=== PATIENT | female | born 1985 | race American Indian/Alaskan Native ===

== ENCOUNTER 2017-01-04 18:03 | Inpatient (IN) | payer OTHER ==
[2017-01-04 18:28] LABS: Basophils % (Auto) 0.2 % (0.0-1.8); Eosinophils % (Auto) 2.3 % (0.0-4.3); Hematocrit 33.5 % (30.3-42.9); Hemoglobin 10.5 gm/dl (10.1-14.3); Mean Corpuscular HGB Conc 31 % (30-34); Mean Corpuscular Volume 70 fl (79-97); Platelet Count 243 K/mm3 (140-440); Red Blood Count 4.76 M/mm3 (3.65-5.03); Red Cell Distribution Width 15.8 % (13.2-15.2); White Blood Count 10.4 K/mm3 (4.5-11.0)
[2017-01-04 18:39] LABS: Mean Corpuscular Hemoglobin 22 pg (28-32)
[2017-01-04 18:46] LABS: Bacteria,Urine 1+ /HPF (Negative); Bilirubin,Urine NEG (Negative); Blood,Urine SM (Negative); Ketones,Urine NEG (Negative); Leukocyte Esterase,Urine SM (Negative); Nitrite,Urine NEG (Negative); Protein,Urine <15 mg/dL mg/dL (Negative); Urobilinogen,Urine < 2.0 mg/dL (<2.0)
[2017-01-04 18:47] LABS: Alanine Aminotransferase 21 units/L (7-56); Albumin 3.6 g/dL (3.9-5); Alkaline Phosphatase 89 units/L (35-129); Anion Gap 18 mmol/L; BUN/Creatinine Ratio 8.75; Blood Urea Nitrogen 7 mg/dL (7-17); Calcium 8.5 mg/dL (8.4-10.2); Carbon Dioxide 21 mmol/L (22-30); Chloride 101.3 mmol/L (98-107); Glucose 91 mg/dL (65-100); Lipase 22 units/L (13-60); Potassium 3.6 mmol/L (3.6-5.0); Sodium 137 mmol/L (137-145); Total Protein 7.1 g/dL (6.3-8.2)
[2017-01-04] MEDS ORDERED: DUONEB 0.5 MG-3 MG/3 ML SOLN IH ONE (19:26)
[2017-01-04] MEDS ORDERED: DILAUDID IV ONE ×2 (19:26→21:22)
[2017-01-04] MEDS ORDERED: ZOFRAN IV ONE (19:26)
[2017-01-04] MEDS ORDERED: TORADOL IV ONE (19:26)
[2017-01-04] MEDS ORDERED: NACL 0.9% 1000 ML 1,000 ML IV ONE (19:30)
[2017-01-04] MEDS ORDERED: ROCEPHIN/NS 1 GM/50 ML 1 GM/50 ML BAG IV ONE (20:17)
--- NOTE | 2017-01-04 20:29 | Cat Scan Report ---
FINAL REPORT EXAM: CT ABDOMEN PELVIS WO CON HISTORY: left flank pain COMPARISON: None available. TECHNIQUE: Contiguous axial images were obtained. Additional sagittal and coronal reformatted images were obtained. FINDINGS: Mild linear atelectasis or scarring at the lung bases. No calcified gallstones. Liver, spleen, pancreas and adrenal glands are grossly unremarkable. No nephrolithiasis or hydronephrosis. Mild left-sided perinephric fat stranding. Aorta and IVC are normal in caliber. No distal ureteral or urinary bladder calculi. Uterus and ovaries are grossly unremarkable. Trace fluid in the pelvis within physiologic limits. There is several borderline and mildly enlarged lymph nodes in the pelvic cavity and inguinal regions. For example there is a left external iliac chain lymph node measuring 1.91.3 centimeters (series 3, image 139). Prior appendectomy. Large and small bowel loops are normal in caliber. Bony pelvis and lumbar spine are grossly intact mild to moderate focal degenerative changes at the L5-S1 level. IMPRESSION: Mild left-sided perinephric fat stranding. No obstructive uropathy. No calculus identified along the course of left ureter or urinary bladder. Findings are most concerning for infection. Recently passed stone could have a similar appearance. Correlation with urinalysis suggested. Trace free fluid in the pelvis within physiologic limits. Borderline and mildly enlarged pelvic and inguinal lymph nodes. These may be reactive given the patient's age. Followup exam within the next 3-6 months may be of benefit to ensure stability.
--- NOTE | 2017-01-04 20:39 | Emergency Department Report ---
ED Abdominal Pain HPI - General Chief Complaint: Abdominal Pain Stated Complaint: LT SIDE PAIN Time Seen by Provider: 01/04/17 19:15 Source: patient Mode of arrival: Ambulatory Limitations: No Limitations - History of Present Illness Initial Comments: 31-year-old female with a past medical history of asthma, lupus, previous PE and previous abdominal surgery including appendectomy, fallopian tube removal, C -section, and endometrial ablation presents to the hospital complaining of left flank pain 5 days. Pain extends across the lower left anterior ribs and posteriorly to the left posterior flank and lower back. Pain is constant, 10/ 10 in intensity, worse with movement, palpation, and deep inspiration. Patient complains of chronic nausea that is unchanged and no episodes of vomiting. She denies fever, dysuria, hematuria, or shortness of breath. Patient's history and PE in the past but was taken off Lovenox 1 year ago and states the symptoms feel different. 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 Patient also complains of intermittent swelling to her hands Severity scale (0 -10): 10 - Related Data Home Medications Medication Instructions Recorded Confirmed Last Taken Albuterol Sulfate [Albuterol 0.63% 0.63 mg IH TID PRN 06/11/15 01/04/17 Unknown NEBS] Previous Rx's Medication Instructions Recorded Last Taken Type ALBUTEROL Inhaler [ProAir HFA 2 puff IH QID PRN #1 inhalation 06/11/15 Unknown Rx Inhaler] Allergies Allergy/AdvReac Type Severity Reaction Status Date / Time shellfish derived AdvReac Shortness Verified 06/11/15 15:38 of Breath ED Review of Systems ROS: Stated complaint: LT SIDE PAIN Other details as noted in HPI Comment: All other systems reviewed and negative Other: Constitutional: No fevers chills Eyes: No eye pain visual changes ENT: No ear pain or throat pain Neck: Denies pain Respiratory: Denies cough wheezing shortness of breath Cardiovascular: Denies palpitations, syncope GI: As per HPI : Denies dysuria Musculoskeletal: As per HPI Skin: Denies rash, lesions, erythema Neurologic: Denies headache, numbness, weakness Psychiatric: Denies suicidal ideation, hallucinations hy ED Past Medical Hx - Past Medical History Previous Medical History?: Yes Hx Pulmonary Embolism: Yes Hx Asthma: Yes Additional medical history: Lupus - Surgical History Past Surgical History?: Yes Hx Appendectomy: Yes Additional Surgical History: Fallopian tubal removal, endometrial ablation. c- section - Social History Smoking Status: Former Smoker Substance Use Type: Alcohol, Prescribed - Medications Home Medications: Home Medications Medication Instructions Recorded Confirmed Last Taken Type ALBUTEROL Inhaler [ProAir HFA 2 puff IH QID PRN #1 inhalation 06/11/15 01/04/17 Unknown Rx Inhaler] Albuterol Sulfate [Albuterol 0.63% 0.63 mg IH TID PRN 06/11/15 01/04/17 Unknown History NEBS] ED Physical Exam - General Limitations: No Limitations - Other Other exam information: General: Positive distress secondary to pain, patient is alert in no acute distress Head exam: Atraumatic, normocephalic Eyes exam: Normal appearance, pupils equal reactive to light, extraocular movements intact ENT: Moist mucous membrane, normal oropharynx Neck exam: Normal inspection, full range of motion, no meningismus nontender Respiratory exam: Mild expiratory wheezing, no tachypnea or accessory muscle use Left lower rib tenderness Cardiovascular: Normal rate and rhythm, normal heart sounds Abdomen: Soft, nondistended, left lower quadrant tenderness, with normal bowel sounds, no rebound, or guarding Extremity: Full range of motion, mild swelling to wrist/hand area bilateral Back: Normal Inspection, full range of motion, left flank in the paraspinal muscle tenderness Neurologic: Alert, oriented x3, cranial nerves intact, no motor or sensory deficit Psychiatric: normal affect, normal mood Skin: Warm, dry, intact ED Course Vital Signs 01/04/17 01/04/17 01/04/17 18:08 19:00 19:10 Temperature 98.6 F Pulse Rate 92 H Pulse Rate [ Anterior Bilateral Throughout] Pulse Rate [ Radial] Respiratory 18 Rate Respiratory Rate [Anterior Bilateral Throughout] Blood Pressure 105/68 113/62 Blood Pressure [Left Radial Artery] O2 Sat by Pulse 100 100 100 Oximetry 01/04/17 01/04/17 01/04/17 19:20 19:55 19:57 Temperature Pulse Rate Pulse Rate [ Anterior Bilateral Throughout] Pulse Rate [ Radial] Respiratory 18 Rate Respiratory Rate [Anterior Bilateral Throughout] Blood Pressure 113/62 113/62 Blood Pressure [Left Radial Artery] O2 Sat by Pulse 99 97 Oximetry 01/04/17 01/04/17 01/04/17 20:00 20:28 20:30 Temperature Pulse Rate Pulse Rate [ Anterior Bilateral Throughout] Pulse Rate [ Radial] Respiratory Rate Respiratory Rate [Anterior Bilateral Throughout] Blood Pressure 111/75 111/75 111/75 Blood Pressure [Left Radial Artery] O2 Sat by Pulse 99 99 99 Oximetry 01/04/17 01/04/17 01/04/17 20:34 20:40 20:44 Temperature Pulse Rate Pulse Rate [ 76 78 Anterior Bilateral Throughout] Pulse Rate [ Radial] Respiratory Rate Respiratory 18 18 Rate [Anterior Bilateral Throughout] Blood Pressure 111/75 Blood Pressure [Left Radial Artery] O2 Sat by Pulse 99 Oximetry 01/04/17 01/04/17 01/04/17 20:50 21:00 21:10 Temperature Pulse Rate Pulse Rate [ Anterior Bilateral Throughout] Pulse Rate [ Radial] Respiratory Rate Respiratory Rate [Anterior Bilateral Throughout] Blood Pressure 113/62 111/75 111/75 Blood Pressure [Left Radial Artery] O2 Sat by Pulse 97 97 94 Oximetry 01/04/17 01/04/17 01/04/17 21:20 21:30 21:40 Temperature Pulse Rate Pulse Rate [ Anterior Bilateral Throughout] Pulse Rate [ Radial] Respiratory Rate Respiratory Rate [Anterior Bilateral Throughout] Blood Pressure 111/75 111/75 111/75 Blood Pressure [Left Radial Artery] O2 Sat by Pulse 99 99 99 Oximetry 01/04/17 01/04/17 01/04/17 21:50 22:00 22:14 Temperature Pulse Rate Pulse Rate [ Anterior Bilateral Throughout] Pulse Rate [ Radial] Respiratory Rate Respiratory Rate [Anterior Bilateral Throughout] Blood Pressure 111/75 127/72 127/72 Blood Pressure [Left Radial Artery] O2 Sat by Pulse 98 97 98 Oximetry 01/04/17 01/04/17 01/04/17 22:20 22:30 22:40 Temperature Pulse Rate Pulse Rate [ Anterior Bilateral Throughout] Pulse Rate [ Radial] Respiratory Rate Respiratory Rate [Anterior Bilateral Throughout] Blood Pressure 127/72 127/72 127/72 Blood Pressure [Left Radial Artery] O2 Sat by Pulse 98 100 99 Oximetry 01/04/17 23:39 Temperature 98.3 F Pulse Rate Pulse Rate [ Anterior Bilateral Throughout] Pulse Rate [ 63 Radial] Respiratory 16 Rate Respiratory Rate [Anterior Bilateral Throughout] Blood Pressure Blood Pressure 115/57 [Left Radial Artery] O2 Sat by Pulse 99 Oximetry - Reevaluation(s) Reevaluation #1: 01/04/17 21:23 Patient received 1 L normal saline, Dilaudid, Zofran, Toradol continues to have significant pain. Rocephin being given at this time. Patient has intractable pain unmanageable with ED IV narcotics and will be admitted - EJ/Peripheral Line Neck R Time Out Performed: Yes Indications: nurses unable to establis Skin Cleansed in Sterile Fashion: Yes Size: 20 Dressing Placed: Tegaderm Patient Tolerated Procedure: well, no complications ED Medical Decision Making - Lab Data Result diagrams: 01/04/17 18:15 01/04/17 18:15 Lab Results 01/04/17 01/04/17 01/04/17 Range/Units 18:15 18:15 18:27 WBC 10.4 (4.5-11.0) K/mm3 RBC 4.76 (3.65-5.03) M/mm3 Hgb 10.5 (10.1-14.3) gm/dl Hct 33.5 (30.3-42.9) % MCV 70 L (79-97) fl MCH 22 L (28-32) pg MCHC 31 (30-34) % RDW 15.8 H (13.2-15.2) % Plt Count 243 (140-440) K/mm3 Lymph % (Auto) 20.9 (13.4-35.0) % [place] % (Auto) 3.9 (0.0-7.3) % Eos % (Auto) 2.3 (0.0-4.3) % Baso % (Auto) 0.2 (0.0-1.8) % Lymph # 2.2 (1.2-5.4) K/mm3 [place] # 0.4 (0.0-0.8) K/mm3 Eos # 0.2 (0.0-0.4) K/mm3 Baso # 0.0 (0.0-0.1) K/mm3 Seg Neutrophils % 72.7 H (40.0-70.0) % Seg Neutrophils # 7.5 (1.8-7.7) K/mm3 Sodium 137 (137-145) mmol/L Potassium 3.6 (3.6-5.0) mmol/L Chloride 101.3 (98-107) mmol/L Carbon Dioxide 21 L (22-30) mmol/L Anion Gap 18 mmol/L BUN 7 (7-17) mg/dL Creatinine 0.8 (0.7-1.2) mg/dL Estimated GFR > 60 ml/min BUN/Creatinine Ratio 8.75 % Glucose 91 (65-100) mg/dL Calcium 8.5 (8.4-10.2) mg/dL Total Bilirubin 0.40 (0.1-1.2) mg/dL AST 31 (5-40) units/L ALT 21 (7-56) units/L Alkaline Phosphatase 89 (35-129) units/L Total Protein 7.1 (6.3-8.2) g/dL Albumin 3.6 L (3.9-5) g/dL Albumin/Globulin Ratio 1.0 % Lipase 22 (13-60) units/L Urine Color Straw (Yellow) Urine Turbidity Clear (Clear) Urine pH 6.0 (5.0-7.0) Ur Specific [place] 1.006 (1.003-1.030) Urine Protein <15 mg/dl (Negative) mg/dL Urine Glucose (UA) Neg (Negative) mg/dL Urine Ketones Neg (Negative) mg/dL Urine Blood Sm (Negative) Urine Nitrite Neg (Negative) Urine Bilirubin Neg (Negative) Urine Urobilinogen < 2.0 (<2.0) mg/dL Ur Leukocyte Esterase Sm (Negative) Urine WBC (Auto) 15.0 H (0.0-6.0) /HPF Urine RBC (Auto) 1.0 (0.0-6.0) /HPF U Epithel Cells (Auto) 1.0 (0-13.0) /HPF Urine Bacteria (Auto) 1+ (Negative) /HPF Urine HCG, Qual (Negative) 01/04/17 Range/Units 18:27 WBC (4.5-11.0) K/mm3 RBC (3.65-5.03) M/mm3 Hgb (10.1-14.3) gm/dl Hct (30.3-42.9) % MCV (79-97) fl MCH (28-32) pg MCHC (30-34) % RDW (13.2-15.2) % Plt Count (140-440) K/mm3 Lymph % (Auto) (13.4-35.0) % [place] % (Auto) (0.0-7.3) % Eos % (Auto) (0.0-4.3) % Baso % (Auto) (0.0-1.8) % Lymph # (1.2-5.4) K/mm3 [place] # (0.0-0.8) K/mm3 Eos # (0.0-0.4) K/mm3 Baso # (0.0-0.1) K/mm3 Seg Neutrophils % (40.0-70.0) % Seg Neutrophils # (1.8-7.7) K/mm3 Sodium (137-145) mmol/L Potassium (3.6-5.0) mmol/L Chloride (98-107) mmol/L Carbon Dioxide (22-30) mmol/L Anion Gap mmol/L BUN (7-17) mg/dL Creatinine (0.7-1.2) mg/dL Estimated GFR ml/min BUN/Creatinine Ratio % Glucose (65-100) mg/dL Calcium (8.4-10.2) mg/dL Total Bilirubin (0.1-1.2) mg/dL AST (5-40) units/L ALT (7-56) units/L Alkaline Phosphatase (35-129) units/L Total Protein (6.3-8.2) g/dL Albumin (3.9-5) g/dL Albumin/Globulin Ratio % Lipase (13-60) units/L Urine Color (Yellow) Urine Turbidity (Clear) Urine pH (5.0-7.0) Ur Specific [place] (1.003-1.030) Urine Protein (Negative) mg/dL Urine Glucose (UA) (Negative) mg/dL Urine Ketones (Negative) mg/dL Urine Blood (Negative) Urine Nitrite (Negative) Urine Bilirubin (Negative) Urine Urobilinogen (<2.0) mg/dL Ur Leukocyte Esterase (Negative) Urine WBC (Auto) (0.0-6.0) /HPF Urine RBC (Auto) (0.0-6.0) /HPF U Epithel Cells (Auto) (0-13.0) /HPF Urine Bacteria (Auto) (Negative) /HPF Urine HCG, Qual Negative (Negative) - Radiology Data Radiology results: report reviewed, image reviewed (chest x-ray pa and lat: No acute findings) CT abdomen and pelvis noncontrast: Mild left-sided perinephric fat stranding. No obstructive uropathy. No calculus. Findings concerning for infection or recently passed token has similar appearance. Trace free fluid in the pelvis within physiologic limits. Borderline and mildly enlarged pelvic and inguinal lymph nodes this may be reactive given patient's age follow-up exam within the next 3-4 months may be beneficial - Medical Decision Making Patient has pain secondary to UTI/pyelonephritis based on CT and UA and has joint swelling and pain secondary to lupus flare. Unable to control pain in the ED and therefore patient will be admitted to the hospital for further treatment - Differential Diagnosis UTI, muscle strain, renal colic, PE, diverticulitis, peptic ulcer disease Critical Care Time: No Critical care attestation.: If time is entered above; I have spent that time in minutes in the direct care of this critically ill patient, excluding procedure time. ED Disposition Clinical Impression: Pyelonephritis, Lupus, Intractable pain Disposition: OP ADMITTED IP TO THIS HOSP Is pt being admited?: Yes Does the pt Need Aspirin: No Condition: Stable Time of Disposition: 21:24 (Dr Turcios/hospitalist)
--- NOTE | 2017-01-04 21:09 | XRay Report ---
FINAL REPORT EXAM: XR CHEST ROUTINE 2V HISTORY: left lower rib pain COMPARISON: June 2015. FINDINGS:: Frontal and lateral views of the chest obtained. Cardiac silhouette is within normal limits. No focal consolidation or effusion. No pneumothorax. Visualized bony thorax is grossly intact. IMPRESSION:: No acute findings.
[2017-01-04] MEDS ORDERED: PROVENTIL IH PRN (22:51)
[2017-01-04] MEDS ORDERED: DULCOLAX PR PRN (22:51)
[2017-01-04] MEDS ORDERED: TYLENOL PO PRN (22:51)
[2017-01-04] MEDS ORDERED: MILK OF MAGNESIA PO PRN (22:51)
[2017-01-04] MEDS ORDERED: ZOFRAN IV PRN (22:51)
--- NOTE | 2017-01-04 22:55 | History and Physical Report ---
History of Present Illness Date of examination: 01/04/17 History of present illness: 31-year-old woman with a history of lupus, asthma, pulmonary emboli and has comes emergency room with complaints of pain in the mid abdomen going around to the left flank which she describes as sharp pain, constant, started on Thursday, intensity 12/17, she has been taking several [id number] medication without any relief. Pain is worse with deep breaths and movements. Admits to fever, no chills, dysuria. Also complaining of diffuse joint pain, she has been off her steroids for one and a half months Patient denies chest pain, palpitation, shortness of breath, cough, abdominal pain, hematochezia, frequency, focal weakness, dysarthria, chills, polydipsia polyuria, hot or cold intolerance, easy bruisability, or rash or bleeding from mucosal membrane, rhinorrhea, epistaxis, earache, tinnitus, blurry vision, eye discharge, anxiety, depression. Other review of systems negative PAST SURGICAL HISTORY: , fallopian tube removal, appendectomy, endometrial ablation SOCIAL HISTORY: Smoke a quarter pack a day, no alcohol or drugs FAMILY HISTORY: Hypertension Medications and Allergies Allergies Allergy/AdvReac Type Severity Reaction Status Date / Time shellfish derived AdvReac Shortness Verified 06/11/15 15:38 of Breath fish Allergy Shortness Uncoded 01/05/17 10:13 of Breath Home Medications Medication Instructions Recorded Confirmed Last Taken Type ALBUTEROL Inhaler [ProAir HFA 2 puff IH QID PRN #1 inhalation 06/11/15 01/04/17 Unknown Rx Inhaler] Albuterol Sulfate [Albuterol 0.63% 0.63 mg IH TID PRN 06/11/15 01/04/17 Unknown History NEBS] Exam - Physical Exam Narrative exam: Gen. appearance: Patient lying in bed, no apparent distress HEENT: Normocephalic, atraumatic, pupils equally round and reactive to light, extraocular movement intact, and no sclericterus,. No JVD or thyromegaly or nodule,neck supple, no carotid bruit ,mucous membranes moist, no exudate or erythema Heart: S1, S2, regular rate and rhythm Lungs: Clear to auscultation bilaterally, breathing comfortable Abdomen: Positive bowel sounds, nontender, nondistended, no organomegaly Extremity: No edema, cyanosis, clubbing Skin: No rash, nodules, warm, dry Neuro: Oriented 3, cranial nerves II-12 intact, speech is fluent, motor and sensory intact - Constitutional Vitals: Temp Pulse Resp BP Pulse Ox 98.6 F 78 18 127/72 99 01/04/17 18:08 01/04/17 20:44 01/04/17 20:44 01/04/17 22:40 01/04/17 22:40 Results - Labs CBC & Chem 7: 01/05/17 07:56 01/05/17 07:56 Labs: Abnormal lab results 01/04/17 01/04/17 01/04/17 Range/Units 18:15 18:15 18:27 MCV 70 L (79-97) fl MCH 22 L (28-32) pg RDW 15.8 H (13.2-15.2) % Seg Neutrophils % 72.7 H (40.0-70.0) % Carbon Dioxide 21 L (22-30) mmol/L Albumin 3.6 L (3.9-5) g/dL Urine WBC (Auto) 15.0 H (0.0-6.0) /HPF - Imaging and Cardiology CT scan - abdomen: report reviewed CT scan - pelvis: report reviewed Assessment and Plan Lupus exacerbation Pyelonephritis Asthma, stable Admit to medicine Start steroids, IV morphine, IV Rocephin Follow cultures, check d-dimer Start DVT prophylaxis
--- NOTE | 2017-01-04 23:19 | Admit Criteria Form ---
Admission Criteria Documentation: ABDOMINAL PAIN Clinical Indications for Admission to Inpatient Care (Place 'X' for any and all applicable criteria): Admission is indicated for ANY ONE of the following(1)(2)(3)(4)(5): [ X]I. Inpatient admission required rather than observation care (Also use Abdominal Pain: Observation Care, as appropriate) because of ANY ONE of the following: [ ]a) Severe pain requiring acute inpatient management [X ]b) Identification of etiology/finding that requires inpatient care (eg, aortic dissection, free air) [ ]c) Absent bowel sounds with complete ileus(6) [ ]d) Suspected toxic megacolon [ ]e) Severe electrolyte abnormalities requiring inpatient care [ ]f) High fever or infection requiring inpatient admission as indicated by ANY ONE of following(7)(8): [ ] i) Appropriate outpatient or observational care antimicrobial treatment unavailable, not effective, or not feasible [ ] ii) Documented bacteremia [ ] iii) Temperature > 104.9 degrees F (oral) [ ] iv) T >103.1 F (oral) or < 96.8 F(rectal) that does not respond to all emergency treatment measures [ ]g) Signs of intestinal obstruction [B] [ ]h) Hemodynamic instability [ ]i) IV fluid to replace significant ongoing losses (greater than 3 L/m2 per day) (12)(13) [ ]j) Percutaneous or open drainage (eg, abscess, biliary tract ) procedures [ ]k) Parenteral nutrition regimen that must be implemented on inpatient basis [ ]l) Other condition,treatment or monitoring requiring inpatient admission. [ ]II. Peritoneal signs present [ ]III. Surgery needed that cannot be performed on an ambulatory basis. [ ]IV. Evaluation requires patient to not eat or drink for extended period ( eg, more than 24 hours). [ ]V. Contraindications and/or Inappropriate clinical situations for Observational Care in patients with abdominal pain, when ANY ONE of the following is required: [ ]a) Thorough evaluation is required to prevent catastrophic events due to delays in diagnosing (e.g.Mesenteric ischemia) 1,3 [ ]b) Patient with severe pathology or with chronic symptoms unlikely to improve in the ED stay (3) [ ]. General contraindications and/or Inappropriate clinical situations for Observational Care in patients with abdominal pain, when ANY ONE of the following is required: [ ]a) Prediction of prolongation of LOS based on ANY ONE of the following may be considered as a contraindication for observational care 2, 3, 4, 5, 6, 7, 8, 9, 10, 11 [ ]i) Age > 65 yrs. [ ]ii) Patient arriving by ambulance [ ]iii) Patient with high acuity [ ]iv) Patient requiring vital sign monitoring [ ]v) Patient on IV medication [ ]b) Systolic blood pressures 180mmHg 3,12 [ ]c) Patient with altered mental status including delirium and other alteration of consciousness, (3) [ ]d) Patient whose discharge disposition will be to a shelter home or rehabilitation home should not be managed in Emergency Department Observation Unit. CMS rule requires 3 days hospital stay before such placement.3,13 [ ]e) Patient with failure to thrive due to broad array of etiologies 3,16,17 [ ]f) Inability to ambulate 3,14 Extended stay beyond goal length of stay may be needed for(2)(3): [ ]a) Persistent abdominal pain with suspected intra-abdominal process [ ]b) Diagnosed condition requiring continued stay (e.g., pancreatitis, complicated diverticulitis) [ ]c) Surgery (e.g., colectomy) The original [facility] content created by [employer] has been revised. The portions of the content which have been revised are identified through the use of italic text or in bold, and [facility] has neither reviewed nor approved the modified material.All other unmodified content is copyright [facility]. Please see references footnoted in the original [facility] edition 2016 Admission Criteria Met: Yes
[2017-01-04] MEDS: MORPHINE IV PRN (23:48)
[2017-01-05] MEDS: MORPHINE IV PRN ×4 (04:55→21:26)
[2017-01-05] MEDS ORDERED: PROVENTIL IH SCH (08:00)
[2017-01-05 08:28] LABS: Basophils % (Auto) 0.1 % (0.0-1.8); Hematocrit 34.5 % (30.3-42.9); Hemoglobin 10.9 gm/dl (10.1-14.3); Mean Corpuscular HGB Conc 32 % (30-34); Mean Corpuscular Volume 71 fl (79-97); Platelet Count 270 K/mm3 (140-440); Red Blood Count 4.86 M/mm3 (3.65-5.03); White Blood Count 9.9 K/mm3 (4.5-11.0)
[2017-01-05] MEDS: DUONEB 0.5 MG-3 MG/3 ML SOLN IH SCH ×3 (08:33→19:46)
[2017-01-05 08:41] LABS: Mean Corpuscular Hemoglobin 22 pg (28-32)
[2017-01-05 08:45] LABS: Anion Gap 20 mmol/L; Blood Urea Nitrogen 7 mg/dL (7-17); Calcium 8.9 mg/dL (8.4-10.2); Carbon Dioxide 20 mmol/L (22-30); Chloride 100.2 mmol/L (98-107); Glucose 137 mg/dL (65-100); Potassium 4.3 mmol/L (3.6-5.0); Sodium 136 mmol/L (137-145)
--- NOTE | 2017-01-05 08:50 | Nuclear Medicine Report ---
LUNG SCAN, VENTILATION AND PERFUSION: History: Chest pain, left lower chest pain. Technique: 5mci of Tc99m MAA was infused for the perfusion images. 15mci XE 133 gas was inhaled for the ventilatory images. Correlation is made with a chest x-ray dated 01/04/17. Findings: Inhalation of Xenon gas demonstrates a normal distribution of the activity throughout both lungs. The wash out phases show mild retention of the radiotracer in both lower lung zones. After injection of Technetium 99m macroaggregated albumin gamma camera imaging of the lungs in multiple projections demonstrates normal pulmonary contours with a homogeneous distribution of activity. No focal areas of perfusion deficiency are identified. IMPRESSION: Low probability for pulmonary embolus.
--- NOTE | 2017-01-05 08:54 | Progress Note ---
Assessment and Plan Assessment and plan: 31-year-old woman with a history of lupus, asthma, pulmonary emboli and has comes emergency room with complaints of pain in the mid abdomen going around to the left flank which she describes as sharp pain Lupus exacerbation taper off steroids, continue pain meds, improving Pyelonephritis Asthma, stable Hx of PE VQ scan was negative, no further workup DVT ppx lovenox History Interval history: left flank pain is improved, now 4/10, sharp, no exacerbating factors, no radiation, improved by analgesics Hospitalist Physical - Physical exam Narrative exam: Gen. appearance: Patient lying in bed, no apparent distress HEENT: Normocephalic, atraumatic, pupils equally round and reactive to light, extraocular movement intact, and no sclericterus,. No JVD or thyromegaly or nodule,neck supple, no carotid bruit ,mucous membranes moist, no exudate or erythema Heart: S1, S2, regular rate and rhythm Lungs: Clear to auscultation bilaterally, breathing comfortable Abdomen: Positive bowel sounds, nondistended, no organomegaly left flank tenderness Extremity: No edema, cyanosis, clubbing Skin: No rash, nodules, warm, dry Neuro: Oriented 3, cranial nerves II-12 intact, speech is fluent, motor and sensory intact - Constitutional Vitals: Temp Pulse Resp BP Pulse Ox 98.3 F 62 18 115/57 99 01/04/17 23:39 01/05/17 08:33 01/05/17 08:33 01/04/17 23:39 01/05/17 08:24 Results - Labs CBC & Chem 7: 01/05/17 07:56 01/05/17 07:56 Labs: Laboratory Last Values WBC 9.9 K/mm3 (4.5-11.0) 01/05/17 07:56 RBC 4.86 M/mm3 (3.65-5.03) 01/05/17 07:56 Hgb 10.9 gm/dl (10.1-14.3) 01/05/17 07:56 Hct 34.5 % (30.3-42.9) 01/05/17 07:56 MCV 71 fl (79-97) L 01/05/17 07:56 MCH 22 pg (28-32) L 01/05/17 07:56 MCHC 32 % (30-34) 01/05/17 07:56 RDW 16.0 % (13.2-15.2) H 01/05/17 07:56 Plt Count 270 K/mm3 (140-440) 01/05/17 07:56 Lymph % (Auto) 12.6 % (13.4-35.0) L 01/05/17 07:56 Burnett % (Auto) 1.7 % (0.0-7.3) 01/05/17 07:56 Eos % (Auto) 0.0 % (0.0-4.3) 01/05/17 07:56 Baso % (Auto) 0.1 % (0.0-1.8) 01/05/17 07:56 Lymph # 1.3 K/mm3 (1.2-5.4) 01/05/17 07:56 Burnett # 0.2 K/mm3 (0.0-0.8) 01/05/17 07:56 Eos # 0.0 K/mm3 (0.0-0.4) 01/05/17 07:56 Baso # 0.0 K/mm3 (0.0-0.1) 01/05/17 07:56 Seg Neutrophils % 85.6 % (40.0-70.0) H 01/05/17 07:56 Seg Neutrophils # 8.5 K/mm3 (1.8-7.7) H 01/05/17 07:56 D-Dimer 327.63 ng/mlDDU (0-234) H 01/04/17 23:06 Sodium 136 mmol/L (137-145) L 01/05/17 07:56 Potassium 4.3 mmol/L (3.6-5.0) 01/05/17 07:56 Chloride 100.2 mmol/L (98-107) 01/05/17 07:56 Carbon Dioxide 20 mmol/L (22-30) L 01/05/17 07:56 Anion Gap 20 mmol/L 01/05/17 07:56 BUN 7 mg/dL (7-17) 01/05/17 07:56 Creatinine 0.7 mg/dL (0.7-1.2) 01/05/17 07:56 Estimated GFR > 60 ml/min 01/05/17 07:56 BUN/Creatinine Ratio 10.00 % 01/05/17 07:56 Glucose 137 mg/dL (65-100) H 01/05/17 07:56 Calcium 8.9 mg/dL (8.4-10.2) 01/05/17 07:56 Total Bilirubin 0.40 mg/dL (0.1-1.2) 01/04/17 18:15 AST 31 units/L (5-40) 01/04/17 18:15 ALT 21 units/L (7-56) 01/04/17 18:15 Alkaline Phosphatase 89 units/L (35-129) 01/04/17 18:15 Total Protein 7.1 g/dL (6.3-8.2) 01/04/17 18:15 Albumin 3.6 g/dL (3.9-5) L 01/04/17 18:15 Albumin/Globulin Ratio 1.0 % 01/04/17 18:15 Lipase 22 units/L (13-60) 01/04/17 18:15 Urine Color Straw (Yellow) 01/04/17 18:27 Urine Turbidity Clear (Clear) 01/04/17 18:27 Urine pH 6.0 (5.0-7.0) 01/04/17 18:27 Ur Specific [place] 1.006 (1.003-1.030) 01/04/17 18:27 Urine Protein <15 mg/dl mg/dL (Negative) 01/04/17 18:27 Urine Glucose (UA) Neg mg/dL (Negative) 01/04/17 18:27 Urine Ketones Neg mg/dL (Negative) 01/04/17 18:27 Urine Blood Sm (Negative) 01/04/17 18:27 Urine Nitrite Neg (Negative) 01/04/17 18:27 Urine Bilirubin Neg (Negative) 01/04/17 18:27 Urine Urobilinogen < 2.0 mg/dL (<2.0) 01/04/17 18:27 Ur Leukocyte Esterase Sm (Negative) 01/04/17 18:27 Urine WBC (Auto) 15.0 /HPF (0.0-6.0) H 01/04/17 18:27 Urine RBC (Auto) 1.0 /HPF (0.0-6.0) 01/04/17 18:27 U Epithel Cells (Auto) 1.0 /HPF (0-13.0) 01/04/17 18:27 Urine Bacteria (Auto) 1+ /HPF (Negative) 01/04/17 18:27 Urine HCG, Qual Negative (Negative) 01/04/17 18:27
[2017-01-05] MEDS ORDERED: LOVENOX SUB-Q SCH (10:00)
[2017-01-05] MEDS: LOVENOX SUB-Q SCH (10:01)
[2017-01-05] MEDS: ROCEPHIN/NS 1 GM/50 ML 1 GM/50 ML BAG IV SCH (10:01)
[2017-01-05] MEDS ORDERED: AMBIEN PO ONE (21:16)
[2017-01-06 00:10] VITALS: BP 113/59
[2017-01-06] MEDS: DUONEB 0.5 MG-3 MG/3 ML SOLN IH SCH ×2 (07:53→14:45)
[2017-01-06] MEDS: MORPHINE IV PRN (08:14)
--- NOTE | 2017-01-06 08:40 | Discharge Summary ---
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 She was treated with IV fluids, steroids and analgesics, she clinically improved and was sent home in improved condition Lupus exacerbation She was treated with steroids, pain medications, and she clinically improved. Pyelonephritis was ruled out Pallor nephritis with suspected GERD for She was treated with IV antibiotics and clinically improved, however urine cultures were negative. Therefore pyuria was most likely due to inflammation from lupus exacerbation Hx of PE VQ scan was negative, no further workup DVT ppx lovenox Disposition: DISCHARGED TO HOME OR SELFCARE Time spent for discharge: 35 minutes Core Measure Documentation - Palliative Care Palliative Care/ Comfort Measures: Not Applicable - Core Measures Any of the following diagnoses?: none Exam - Constitutional Vitals: Temp Pulse Resp BP Pulse Ox 98.6 F 82 18 113/59 96 01/06/17 00:00 01/06/17 00:00 01/06/17 00:00 01/06/17 00:00 01/06/17 00:00 General appearance: Present: no acute distress, well-nourished - EENT Eyes: Present: PERRL ENT: hearing intact, clear oral mucosa - Neck Neck: Present: supple, normal ROM - Respiratory Respiratory effort: normal Respiratory: bilateral: CTA - Cardiovascular Heart Sounds: Present: S1 & S2. Absent: rub, click - Extremities Extremities: pulses symmetrical, No edema Peripheral Pulses: within normal limits - Abdominal General gastrointestinal: Present: soft, non-tender, non-distended, normal bowel sounds Female genitourinary: Present: normal - Integumentary Integumentary: Present: clear, warm, dry - Musculoskeletal Musculoskeletal: gait normal, strength equal bilaterally - Psychiatric Psychiatric: appropriate mood/affect, intact judgment & insight - Neurologic Neurologic: CNII-XII intact, moves all extremities Plan Follow up with: PRIMARY CARE, [Primary Care Provider] - 7 Days Forms: Work/School Release Form Prescriptions: oxyCODONE /ACETAMINOPHEN [Percocet 5/325] 1 tab PO Q6HR PRN #20 tablet PRN Reason: Pain Prednisone [predniSONE 5 mg (6-Day Pack, 21 Tabs)] 5 mg PO .TAPER #1 tab.ds.pk
[2017-01-06] MEDS: ROCEPHIN/NS 1 GM/50 ML 1 GM/50 ML BAG IV SCH (09:41)
[2017-01-06] MEDS: LOVENOX SUB-Q SCH (09:41)
== END 2017-01-06 16:00 | disposition home or self-care (01) | DRG 547 ==
LOC: ED 18:03 → 3A 22:51
PROVIDERS: ADMIT Internal Medicine; ATTEND Internal Medicine
DX: M32.9 Systemic lupus erythematosus, unspecified (principal); J45.909 Unspecified asthma, uncomplicated; F17.210 Nicotine dependence, cigarettes, uncomplicated; K21.9 Gastro-esophageal reflux disease without esophagitis; N05.9 Unspecified nephritic syndrome with unspecified morphologic changes; Z86.711 Personal history of pulmonary embolism; Z90.89 Acquired absence of other organs; Z82.49 Family history of ischemic heart disease and other diseases of the circulatory system; Z91.013 Allergy to seafood
CPT/HCPCS: 36415; 71020; 74176; 78582; 80048; 80053; 81001; 81025; 83690; 85025; 85379; 87086; 94640; 94760; 96361; 96374; 96375; 96376; A9540; A9558; J0696; J1170; J1650; J1885; J2270; J2405; J2920; J2930; J7030